=== PATIENT | female | born 1945 | race Caucasian/White ===

== ENCOUNTER 2019-12-31 21:50 | Emergency (ER) | payer OTHER, MEDICAID ==
[~2019-12-31] VITALS: Ht 149.9 cm; Wt 71.2 kg
[2019-12-31 21:50] VITALS: BP_SYST 164
--- NOTE | 2019-12-31 23:11 | NUR ---
Pt wheeled to bed 3 for evaluation
--- NOTE | 2019-12-31 23:15 | NUR ---
ER at bedside examining patient.
--- NOTE | 2019-12-31 23:20 | NUR ---
Pt c/o R eye pain x today. Pt states getting dirt in her R eye. Pt flushed eye with water and took motrin 600mg for the discomfort. Was able to briefly open R eye.
--- NOTE | 2019-12-31 23:30 | NUR ---
Dr. Perkins at bed side peforming eye examination of the R eye. Eye kit and muller lamp provide to physician.
[2019-12-31 23:50] VITALS: BP_SYST 164
--- NOTE | 2019-12-31 23:52 | NUR ---
Patient given written and verbal discharge instructions and verbalizes understanding. ER MD discussed with patient the results and treatment provided. Patient in stable condition. ID arm band removed. Rx of Polytrim solution and Tylenol w/ codeine given. Patient educated on pain management and to follow up with PMD. Opportunity for questions provided and answered. Medication side effect fact sheet provided.
[2020-01-01] MEDS ORDERED: ACETAMINOPHEN/CODEINE 300 MG-30 MG TABLET PO ONE
== END 2019-12-31 23:52 | disposition home or self-care (01) ==
LOC: SED 21:50
DX: S05.01XA Injury of conjunctiva and corneal abrasion without foreign body, right eye, initial encounter (principal); X58.XXXA Exposure to other specified factors, initial encounter; Y93.89 Activity, other specified; Y92.89 Other specified places as the place of occurrence of the external cause; Y99.8 Other external cause status
CPT/HCPCS: 99283